=== PATIENT | female | born 1950 | race African-American/Black ===

== ENCOUNTER 2016-10-02 13:41 | Inpatient (IN) | payer OTHER, MEDICAID ==
[~2016-10-02] VITALS: Ht 157.5 cm; Wt 71.7 kg
[~2016-10-02 13:41] MED LIST: ASPIR 8181 MG ORAL; CYCLOBENZAPRINE10 MG ORAL; IBUPROFEN600 MG ORAL; MAXZIDE 37.5 M1 EAC1 PO; NORCO 5-325 TA1 EACH ORAL; NORVASC10 MG ORAL
[2016-10-02 14:07] VITALS: BP 139/59
--- NOTE | 2016-10-02 14:22 | Emergency Room Report ---
History of Present Illness General Chief Complaint: Dyspnea/Respdistress Source: Patient Present Illness HPI Patient is a 66-year-old female presented for increased difficulty breathing. Patient gradual onset of symptoms over the past 2 weeks. Patient had prior history of hypertension. Patient had recently returned from [facility] where she had further medical testing done. Patient stated that she had had negative CT of the chest. The patient describes having increased night sweats as well as weight loss. The patient had been having some symptoms for several weeks. This had somewhat worsened. She denies any prior history of tuberculosis. As she had no vomiting or diarrhea. She reports having generalized joint pain. Allergies: Coded Allergies: No Known Allergies (Unverified , 08/19/13) Patient History Past Medical History: see triage record Reviewed Nursing Documentation: PMH: Agreed, PSxH: Agreed Nursing Documentation-PMH Past Medical History: No History, Except For Hx Hypertension: Yes Hx Asthma: Yes Review of Systems All Other Systems: negative except mentioned in HPI Physical Exam Vital Signs Date Time Temp Pulse Resp B/P Pulse Ox O2 Delivery O2 Flow Rate FiO2 10/02/16 13:48 97.5 106 20 133/66 98 Room Air Sp02 EP Interpretation: reviewed, normal General Appearance: normal inspection, well appearing, no apparent distress, alert, GCS 15 Head: atraumatic ENT: normal ENT inspection, hearing grossly normal, normal voice Neck: normal inspection, full range of motion, supple, no bony tend Respiratory: normal inspection, lungs clear, normal breath sounds, no respiratory distress, no retraction, no wheezing Cardiovascular #1: regular rate, rhythm, no edema Gastrointestinal: normal inspection, normal bowel sounds, non tender, soft, no guarding, no hernia Genitourinary: no CVA tenderness Musculoskeletal: normal inspection, back normal, normal range of motion Neurologic: normal inspection, alert, oriented x3, responsive, physical education aide III-XII nml as tested, speech normal Psychiatric: normal inspection, judgement/insight normal, mood/affect normal Skin: normal inspection, normal color, no rash Medical Decision Making Diagnostic Impression: Primary Impression: Metabolic acidosis with respiratory alkalosis Additional Impression: Lactic acid acidosis ER Course Patient presented for shortness of breath.Differential included but was not limited to anemia, pneumonia, pneumothorax, myocardial infarction, pericardial effusion, congestive heart failure, acidosis. Because of complexity of patient' s case laboratory testing and imaging studies were ordered. Prior laboratory testing was reviewed was notable for elevated sedimentation rate. Laboratory testing from today was noted for elevated anion gap of low bicarbonate. Patient was noted to have relatively normal BUN creatinine. This was associated with low ABG CO2 and low pH. As consistent with a metabolic acidosis with respiratory compensation. Patient noted be mildly anemic. Patient did not show any evidence of definite infection.The patient apparently had recent laboratory testing done and [place] to rule out dengue. The patient was discussed with Dr. hook for inpatient management Labs Test 10/02/16 14:05 10/02/16 14:22 10/02/16 15:55 White Blood Count 7.0 K/UL (4.8-10.8) Red Blood Count 3.58 M/UL (4.20-5.40) Hemoglobin 9.4 G/DL (12.0-16.0) Hematocrit 29.4 % (37.0-47.0) Mean Corpuscular Volume 82 FL (80-99) Mean Corpuscular Hemoglobin 26.2 PG (27.0-31.0) Mean Corpuscular Hemoglobin Concent 31.9 G/DL (32.0-36.0) Red Cell Distribution Width 18.5 % (11.6-14.8) Platelet Count 98 K/UL (150-450) Mean Platelet Volume 7.0 FL (6.5-10.1) Neutrophils (%) (Auto) % (45.0-75.0) Lymphocytes (%) (Auto) % (20.0-45.0) Monocytes (%) (Auto) % (1.0-10.0) Eosinophils (%) (Auto) % (0.0-3.0) Basophils (%) (Auto) % (0.0-2.0) Differential Total Cells Counted 100 Neutrophils % (Manual) 12 % (45-75) Lymphocytes % (Manual) 29 % (20-45) Monocytes % (Manual) 16 % (1-10) Eosinophils % (Manual) 0 % (0-3) Basophils % (Manual) 0 % (0-2) Myelocytes % 1 % (0-0) Blast Cells % 35 % (0-0) Band Neutrophils 7 % (0-8) Platelet Estimate Decreased Platelet Morphology Normal Polychromasia 1+ Anisocytosis 1+ Erythrocyte Sedimentation Rate 115 MM/HR (0-30) Sodium Level 142 mEQ/L (135-145) Potassium Level 4.3 mEQ/L (3.4-4.9) Chloride Level 94 mEQ/L (98-107) Carbon Dioxide Level 13 mEQ/L (20-30) Anion Gap 35 (5-15) Blood Urea Nitrogen 21 mg/dL (7-23) Creatinine 1.0 mg/dL (0.5-0.9) Estimat Glomerular Filtration Rate > 60 mL/min (>60) Glucose Level 114 mg/dL (74-106) Calcium Level 10.3 mg/dL (8.6-10.2) Total Bilirubin 0.2 mg/dL (0.0-1.2) Aspartate Amino Transf (AST/SGOT) 65 U/L (5-40) Alanine Aminotransferase (ALT/SGPT) 36 U/L (3-33) Alkaline Phosphatase 261 U/L (35-104) Total Creatine Kinase 27 U/L (26-140) Creatine Kinase MB < 1.5 ng/mL (< 3.8) Creatine Kinase MB Relative Index Troponin I < 0.30 ng/mL (<=0.30) Pro-B-Type Natriuretic Peptide 1049 pg/mL (0-125) Total Protein 7.1 g/dL (6.6-8.7) Albumin 3.5 g/dL (3.5-5.2) Globulin 3.6 g/dL Albumin/Globulin Ratio 0.9 (1.0-2.7) Arterial Blood pH 7.320 (7.350-7.450) Arterial Blood Partial Pressure CO2 25.0 mmHg (35.0-45.0) Arterial Blood Partial Pressure O2 103.0 mmHg (75.0-100.0) Arterial Blood HCO3 13.0 mmol/L (22.0-26.0) Arterial Blood Oxygen Saturation 97.0 % (92.0-98.0) Arterial Blood Base Excess -12 Sae Test Positive Chest X-Ray Diagnostic Results EP Interpretation: Yes Findings: no consolidation, no effusion, no pneumothorax, no acute cardiopulmonary disease Number of Views: 1 Last Vital Signs Date Time Temp Pulse Resp B/P Pulse Ox O2 Delivery O2 Flow Rate FiO2 10/02/16 14:07 106 20 Room Air 10/02/16 14:07 97.5 139/59 99 Status: improved Disposition: HOME, SELF-CARE Condition: Stable Mark Guardado Oct 02, 2016 14:22
[2016-10-02 14:34] LABS: MEAN CORPUSCULAR HEMOGLOBIN 26.2 PG (27.0-31.0); MEAN CORPUSCULAR HGB CONC 31.9 G/DL (32.0-36.0); MEAN CORPUSCULAR VOLUME 82 FL (80-99); PLATELET COUNT 98 K/UL (150-450); RED BLOOD COUNT 3.58 M/UL (4.20-5.40); RED CELL DISTRIBUTION WIDTH 18.5 % (11.6-14.8)
[2016-10-02 14:36] LABS: ABG ALLEN TEST POSITIVE; ABG BASE EXCESS -12
[2016-10-02 14:42] LABS: TROPONIN I < 0.30 ng/mL (<=0.30)
[2016-10-02 14:43] LABS: ALANINE AMINOTRANSFERASE 36 U/L (3-33); ALBUMIN/GLOBULIN RATIO 0.9 (1.0-2.7); ANION GAP 35 (5-15); ASPARTATE AMINO TRANSFERASE 65 U/L (5-40); CALCIUM 10.3 mg/dL (8.6-10.2); CARBON DIOXIDE 13 mEQ/L (20-30); CHLORIDE 94 mEQ/L (98-107); GLOMERULAR FILTRATION RATE > 60 mL/min (>60); HEMOLYSIS 8; POTASSIUM 4.3 mEQ/L (3.4-4.9); REFLEX LACTIC ACID YES OR NO YES; SODIUM 142 mEQ/L (135-145); TOTAL PROTEIN 7.1 g/dL (6.6-8.7)
[2016-10-02 14:53] LABS: CKMB < 1.5 ng/mL (< 3.8)
[2016-10-02 16:17] LABS: ANISOCYTOSIS 1+; BAND NEUTROPHILS % (MANUAL) 7 % (0-8); BLAST% 35 % (0-0); LYMPHOCYTES % (MANUAL) 29 % (20-45); MYELOCYTES % 1 % (0-0); NEUTROPHILS % (MANUAL) 12 % (45-75); POLYCHROMASIA 1+; TOTAL CELLS COUNTED 100
[2016-10-02 16:18] VITALS: BP 129/65
[2016-10-02 16:18] LABS: BASOPHILS % (MANUAL) 0 % (0-2); EOSINOPHILS % (MANUAL) 0 % (0-3); PLATELET ESTIMATE DECREASED; PLATELET MORPHOLOGY NORMAL
[2016-10-02 16:48] VITALS: BP 132/61
[2016-10-02 16:50] LABS: HEMOLYSIS 4; IRON 167 ug/dL (37-145); TOTAL IRON BINDING CAPACITY 183 ug/dL (250-400)
[2016-10-02] MEDS: Sodium Bicarbonate 50 ML in D5 1/2NS 1,000 ML IV SCH (18:50)
[2016-10-02 20:29] VITALS: BP 124/51
[2016-10-02] MEDS ORDERED: Heparin 5000 units/ml inj SUBQ SCH (21:00)
[2016-10-03] VITALS: BP 129/50
[2016-10-03 04:00] VITALS: BP 136/57
[2016-10-03 08:00] VITALS: BP_SYST 109; BP_SYST 135; BP_DIAS 56; BP_DIAS 66
[2016-10-03] MEDS: Sodium Bicarbonate 50 ML in D5 1/2NS 1,000 ML IV SCH ×2 (08:01→21:26)
[2016-10-03 08:17] LABS: ABG ALLEN TEST POSITIVE; ABG BASE EXCESS -8.2
[2016-10-03 08:36] LABS: MEAN CORPUSCULAR HGB CONC 31.3 G/DL (32.0-36.0); MEAN CORPUSCULAR VOLUME 83 FL (80-99); MEAN PLATELET VOLUME 6.9 FL (6.5-10.1); PLATELET COUNT 85 K/UL (150-450); RED BLOOD COUNT 3.16 M/UL (4.20-5.40); RED CELL DISTRIBUTION WIDTH 18.6 % (11.6-14.8)
[2016-10-03 08:57] LABS: ANION GAP 30 (5-15); CALCIUM 9.4 mg/dL (8.6-10.2); CARBON DIOXIDE 17 mEQ/L (20-30); CHLORIDE 94 mEQ/L (98-107); CREATININE 0.8 mg/dL (0.5-0.9); GLOMERULAR FILTRATION RATE > 60 mL/min (>60); HEMOLYSIS 6; POTASSIUM 3.6 mEQ/L (3.4-4.9); SODIUM 141 mEQ/L (135-145)
[2016-10-03] MEDS ORDERED: Aspirin Baby 81mg ORAL SCH (09:00)
[2016-10-03 09:03] LABS: NEUTROPHILS % (MANUAL) 17 % (45-75); REFLEX LACTIC ACID YES OR NO YES
[2016-10-03 09:04] LABS: BAND NEUTROPHILS % (MANUAL) 0 % (0-8); BASOPHILS % (MANUAL) 0 % (0-2); BLAST% 25 % (0-0); EOSINOPHILS % (MANUAL) 2 % (0-3); LYMPHOCYTES % (MANUAL) 51 % (20-45); PLATELET ESTIMATE DECREASED
[2016-10-03 09:05] LABS: ANISOCYTOSIS 2+; PLATELET MORPHOLOGY NORMAL
[2016-10-03 09:06] LABS: HYPOCHROMASIA 3+
--- NOTE | 2016-10-03 09:24 | History and Physical ---
History of Present Illness General Date patient seen: Oct 03, 2016 Time patient seen: 08:00 Reason for Hospitalization: Dyspnea/Respdistress Present Illness HPI 66-year-old female with hx of HTN presented for increased difficulty breathing over the past 2 weeks. Patient had recently returned from [facility] where she had medical testing done. Patient stated that she had had negative CT of the chest. Patient reported night sweats as well as weight loss. reports difficulties with walking, stated that her legs not holding her. patient reported generalized joint pain Denied any prior history of tuberculosis. No chest pain, no dizziness, no palpitations, no blackouts No abdominal pain, no n/v/diarrhea Workup in ED revealed severe lactic acidosis with elevated anion gap CXR no acute cardiopulmonary disease pH 7.32, bicarb 13, anion gap 35 no leukocytosis, anemia, increased blasts cells on CBC with dif, thrombocytopenia, this am leukopenia as well troponin negative , [employer] sinus rhythm Allergies: Coded Allergies: No Known Allergies (Unverified , 08/19/13) Medication History Scheduled Amlodipine Besylate (Norvasc), 10 MG ORAL DAILY, (Reported) Aspirin* (Aspir 81*), 81 MG ORAL DAILY, (Reported) Cyclobenzaprine Hcl* (Flexeril*), 10 MG ORAL THREE TIMES A DAY Triamterene/Hydrochlorothiazid (Maxzide 37.5 Mg-25 Mg Tablet), 1 EACH PO DAILY, (Reported) Scheduled PRN Hydrocodone Bit/Acetaminophen 5-325* ([place] 5-325*), 1 TAB ORAL Q6H PRN for For Pain Ibuprofen* (Motrin*), 600 MG ORAL Q8H PRN for For Pain Patient History Healthcare decision maker Resuscitation status Full Code Advanced Directive on File Past Medical/Surgical History Past Medical/Surgical History: (1) HTN (hypertension) Review of Systems Constitutional: Reports: see HPI, weakness Eye: Reports: no symptoms ENT: Reports: no symptoms Respiratory: Reports: no symptoms, other - asthma Cardiovascular: Reports: no symptoms, other - HTN Gastrointestinal: Reports: no symptoms Genitourinary: Reports: no symptoms Musculoskeletal: Reports: joint pain - generalized Skin: Reports: no symptoms Psychiatric: Reports: no symptoms Endocrine: Reports: unexplained weight loss Hematologic/Lymphatic: Reports: anemia, no symptoms Physical Exam General Appearance: no apparent distress, alert Lines, tubes and drains: peripheral HEENT: normocephalic, atraumatic, anicteric, mucous membranes moist Neck: non-tender, supple Respiratory/Chest: chest wall non-tender, lungs clear, normal breath sounds, no accessory muscle use Cardiovascular/Chest: regular rhythm - ST with PAC , tachycardia Abdomen: normal bowel sounds, non tender, soft Extremities: normal range of motion, non-tender, no calf tenderness, normal capillary refill Skin Exam: normal pigmentation, warm/dry Neurologic: alert, oriented x 3, responsive Musculoskeletal: normal muscle bulk Last 24 Hour Vital Signs Date Time Temp Pulse Resp B/P Pulse Ox O2 Delivery O2 Flow Rate FiO2 10/03/16 08:45 113 10/03/16 08:05 109 136/57 10/03/16 04:00 109 10/03/16 04:00 97.7 60 20 136/57 100 Room Air 10/03/16 00:00 98.4 109 20 129/50 98 Room Air 10/03/16 00:00 111 10/02/16 21:00 100 10/02/16 20:29 98.4 109 20 124/51 98 Room Air 10/02/16 16:48 98.2 106 20 132/61 99 Room Air 10/02/16 16:26 103 18 136/78 99 Room Air 10/02/16 16:18 97.4 103 24 129/65 99 Room Air 10/02/16 14:07 106 20 Room Air 10/02/16 14:07 97.5 109 22 139/59 99 Room Air 10/02/16 13:48 97.5 106 20 133/66 98 Room Air Intake and Output 10/02/16 10/03/16 19:00 07:00 Intake Total 500 ml 825 ml Balance 500 ml 825 ml Intake IV Total 500 ml 825 ml # Voids 1 3 Laboratory Tests Test 10/02/16 14:05 10/02/16 14:22 10/02/16 15:55 10/03/16 08:03 White Blood Count 7.0 K/UL (4.8-10.8) Red Blood Count 3.58 M/UL (4.20-5.40) L Hemoglobin 9.4 G/DL (12.0-16.0) L Hematocrit 29.4 % (37.0-47.0) L Mean Corpuscular Volume 82 FL (80-99) Mean Corpuscular Hemoglobin 26.2 PG (27.0-31.0) L Mean Corpuscular Hemoglobin Concent 31.9 G/DL (32.0-36.0) L Red Cell Distribution Width 18.5 % (11.6-14.8) H Platelet Count 98 K/UL (150-450) L Mean Platelet Volume 7.0 FL (6.5-10.1) Neutrophils (%) (Auto) % (45.0-75.0) Lymphocytes (%) (Auto) % (20.0-45.0) Monocytes (%) (Auto) % (1.0-10.0) Eosinophils (%) (Auto) % (0.0-3.0) Basophils (%) (Auto) % (0.0-2.0) Differential Total Cells Counted 100 Neutrophils % (Manual) 12 % (45-75) L Lymphocytes % (Manual) 29 % (20-45) Monocytes % (Manual) 16 % (1-10) H Eosinophils % (Manual) 0 % (0-3) Basophils % (Manual) 0 % (0-2) Myelocytes % 1 % (0-0) H Blast Cells % 35 % (0-0) *H Band Neutrophils 7 % (0-8) Platelet Estimate Decreased L Platelet Morphology Normal Polychromasia 1+ Anisocytosis 1+ Erythrocyte Sedimentation Rate 115 MM/HR (0-30) H Sodium Level 142 mEQ/L (135-145) Potassium Level 4.3 mEQ/L (3.4-4.9) Chloride Level 94 mEQ/L (98-107) L Carbon Dioxide Level 13 mEQ/L (20-30) L Anion Gap 35 (5-15) H Blood Urea Nitrogen 21 mg/dL (7-23) Creatinine 1.0 mg/dL (0.5-0.9) H Estimat Glomerular Filtration Rate > 60 mL/min (>60) Glucose Level 114 mg/dL (74-106) H Lactic Acid Level 15.10 mmol/L (0.66-2.22) H 15.00 mmol/L (0.66-2.22) H Calcium Level 10.3 mg/dL (8.6-10.2) H Total Bilirubin 0.2 mg/dL (0.0-1.2) Aspartate Amino Transf (AST/SGOT) 65 U/L (5-40) H Alanine Aminotransferase (ALT/SGPT) 36 U/L (3-33) H Alkaline Phosphatase 261 U/L (35-104) H Total Creatine Kinase 27 U/L (26-140) Creatine Kinase MB < 1.5 ng/mL (< 3.8) Creatine Kinase MB Relative Index Troponin I < 0.30 ng/mL (<=0.30) Pro-B-Type Natriuretic Peptide 1049 pg/mL (0-125) H Total Protein 7.1 g/dL (6.6-8.7) Albumin 3.5 g/dL (3.5-5.2) Globulin 3.6 g/dL Albumin/Globulin Ratio 0.9 (1.0-2.7) L Arterial Blood pH 7.320 (7.350-7.450) 7.370 (7.350-7.450) Arterial Blood Partial Pressure CO2 25.0 mmHg (35.0-45.0) L 28.0 mmHg (35.0-45.0) L Arterial Blood Partial Pressure O2 103.0 mmHg (75.0-100.0) H 92.0 mmHg (75.0-100.0) Arterial Blood HCO3 13.0 mmol/L (22.0-26.0) L 15.0 mmol/L (22.0-26.0) L Arterial Blood Oxygen Saturation 97.0 % (92.0-98.0) 95.0 % (92.0-98.0) Arterial Blood Base Excess -12 -8.2 Sae Test Positive Positive Iron Level 167 ug/dL (37-145) H Total Iron Binding Capacity 183 ug/dL (250-400) L Percent Iron Saturation 91 % (15-50) H Unsaturated Iron Binding < 16 ug/dL (112-346) L Salicylates Level 1 mg/dL (10-30) L Test 10/03/16 08:20 White Blood Count 3.0 K/UL (4.8-10.8) #L Red Blood Count 3.16 M/UL (4.20-5.40) L Hemoglobin 8.2 G/DL (12.0-16.0) L Hematocrit 26.3 % (37.0-47.0) L Mean Corpuscular Volume 83 FL (80-99) Mean Corpuscular Hemoglobin 26.0 PG (27.0-31.0) L Mean Corpuscular Hemoglobin Concent 31.3 G/DL (32.0-36.0) L Red Cell Distribution Width 18.6 % (11.6-14.8) H Platelet Count 85 K/UL (150-450) L Mean Platelet Volume 6.9 FL (6.5-10.1) Neutrophils (%) (Auto) % (45.0-75.0) Lymphocytes (%) (Auto) % (20.0-45.0) Monocytes (%) (Auto) % (1.0-10.0) Eosinophils (%) (Auto) % (0.0-3.0) Basophils (%) (Auto) % (0.0-2.0) Neutrophils % (Manual) 17 % (45-75) L Lymphocytes % (Manual) 51 % (20-45) H Monocytes % (Manual) 5 % (1-10) Eosinophils % (Manual) 2 % (0-3) Basophils % (Manual) 0 % (0-2) Blast Cells % 25 % (0-0) *H Band Neutrophils 0 % (0-8) Platelet Estimate Decreased L Platelet Morphology Normal Hypochromasia 3+ Anisocytosis 2+ Sodium Level 141 mEQ/L (135-145) Potassium Level 3.6 mEQ/L (3.4-4.9) Chloride Level 94 mEQ/L (98-107) L Carbon Dioxide Level 17 mEQ/L (20-30) L Anion Gap 30 (5-15) H Blood Urea Nitrogen 14 mg/dL (7-23) Creatinine 0.8 mg/dL (0.5-0.9) Estimat Glomerular Filtration Rate > 60 mL/min (>60) Glucose Level 113 mg/dL (74-106) H Lactic Acid Level 12.50 mmol/L (0.66-2.22) H Calcium Level 9.4 mg/dL (8.6-10.2) Height (Feet): 5 Height (Inches): 2.00 Weight (Pounds): 158 Medications Current Medications Medications (Trade) Dose Ordered Sig/Ebony Route PRN Reason Start Time Stop Time Status Last Admin Dose Admin Acetaminophen (Tylenol) 650 mg Q4H PRN ORAL Mild Pain/Temp > 100.5 10/02/16 18:00 11/01/16 17:59 Amlodipine Besylate (Norvasc) 10 mg DAILY ORAL 10/03/16 09:00 11/02/16 08:59 10/03/16 08:05 Sodium Bicarbonate/ Dextrose/Sodium Chloride (Sodium Bicarbonate/D5 0.45% NS) 1,050 ml @ 75 mls/hr Q14H IV 10/02/16 19:00 11/01/16 18:59 10/03/16 08:01 Temazepam (Restoril) 15 mg HSPRN PRN ORAL Insomnia 10/02/16 21:00 10/09/16 20:59 Assessment/Plan Assessment/Plan ASSESSMENT severe metabolic acidosis with elevated anion gap pancytopenia increased blasts on deferential generalized weakness weight loss elevated ESR PLAN OF CARE DOMINIC IVF with bicarb nephro eval off diuretic and ASA fup with ABG, pH ok HH with trend down, iron panel stable, elevated ESR, blast on CBC with dif get peripheral blood smear review heme eval ? bone marrow aspiration with biopsy monitor HH transfuse prn, goal to keep HgB above 7 anemia workup, stool OB BP management with CCB stable O2 prn to keep sat above 92%, HHN prn PT/OT Venous Duplex BLE case discussed and evaluated by supervising physician Jorge Luis (Araceli),Nancie LEUNG Oct 03, 2016 09:24
[2016-10-03] MEDS ORDERED: DuoNeb 0.5-3(2.5)mg/3ml neb HHN PRN (09:30)
--- NOTE | 2016-10-03 09:47 | Diagnostic Imaging Report ---
Indication: SOB Technique: XRAY CHEST 1 V Comparison: 01/06/15. Findings: The cardiomediastinal silhouette is normal. The lungs are clear. There is no evidence of pleural fluid. The bones are unremarkable. Impression: Normal chest.
[2016-10-03 12:00] VITALS: BP 127/55
--- NOTE | 2016-10-03 12:21 | General Progress Note ---
Progress Note Progress Note [id number] full note dictated CHEY CAGLE Oct 03, 2016 12:21
[2016-10-03 15:30] LABS: PATH BLOOD SMEAR/OMC SENT TO PATHOLOGIST
[2016-10-03 16:14] VITALS: BP 140/62
[2016-10-03 16:14] LABS: URIC ACID 15.4 mg/dL (3.0-7.5)
[2016-10-03 20:53] VITALS: BP 136/67
[2016-10-04] VITALS: BP 135/57
--- NOTE | 2016-10-04 00:17 | Consultation ---
DATE OF CONSULTATION: 10/03/2016 NEPHROLOGY CONSULTATION CONSULTING PHYSICIAN: Keely Mendez M.D. REFERRING PHYSICIAN: Malu Day M.D. REASON FOR CONSULTATION: Acidosis and electrolyte abnormality. HISTORY OF PRESENT ILLNESS: The patient is a 66-year-old very pleasant female with past medical history significant for history of hypertension, CAD, and hypertension, who basically presents to the emergency room complaining of fever, chills, night sweats, and weight loss. Apparently about two months ago, she started having some flu-like symptoms and at about the same time, she flew back home to [facility] and over there, she continued to have fever, night sweat, and decreased appetite. She visited a doctor. She sought medical attention. There, she was given some intravenous antibiotic. She did not take any oral antibiotic. She basically continued to be feeling severely weak. She came to emergency room. She found to have metabolic acidosis. The ABG confirmed bicarbonate of 13 and she was found to have an anion gap of 35. She was consequently admitted. Note that the patient has been drinking above medication, which she is not aware of the formula of it for the last couple of weeks for the treatment of her severe weakness and flu-like symptom. PAST MEDICAL HISTORY: Including hypertension. MEDICATIONS: Home medications are includin. Norvasc 10 mg. 2. Aspirin. 3. Cyclobenzaprine or Flexeril 10 mg by mouth daily. 4. Maxzide 37.5/25 mg by mouth daily. 5. Ibuprofen as needed. FAMILY HISTORY: Father long time ago from liver CA due to alcohol drinking and no other history of chronic diseases. No recent exposure to anybody with chronic disease. The recent visit [facility] to visit family. REVIEW OF SYSTEMS: General: She complained of generalized weakness. Complained of fever, chills, and night sweats. She lost about 28 pounds. Pulmonary: She complained of cough. No phlegm. No hemoptysis. Cardiovascular: Denies any chest pain. Gastrointestinal: Complained of decreased appetite. No nausea. No vomiting. No melena. No hematemesis. Last colonoscopy was five years ago. Genitourinary: Denies any dysuria or frequency. About a year ago, she had a Pap smear. Musculoskeletal: She denies any weakness or numbness. PHYSICAL EXAMINATION: VITAL SIGNS: The patient had a temperature of 97, pulse rate of 113, respiratory rate of 20, and blood pressure 135/57. HEAD AND NECK: No JVP. No LAD. No thyromegaly. Extraocular movements intact. Pupils are reactive to light and accommodation. LUNGS: Clear to auscultation. CARDIAC: Regular rate and rhythm. S1, S2. No murmur. No rub. ABDOMEN: Soft, nontender, and nondistended. EXTREMITIES: Trace edema. No clubbing. No cyanosis. LABORATORY AND DIAGNOSTIC DATA: Laboratory values, the patient has a WBC count of 3, hemoglobin of 8.5, hematocrit of 26, and platelet count of 85,000. The patient had neutrophils of 17, lymphocytes of 51, and blasts of 35%. KSR is 115. Chemistry revealed sodium 141, potassium 3.66, 94 chloride, bicarbonate of 17, BUN of 14, creatinine of 0.8, and glucose of 113. Lactic acid of 14. Iron is less than 16. There is no UA. ASSESSMENT: 1. Severe lymphocytic anemia. 2. Lactic acidosis. 3. Pancytopenia. 4. Hypertension. 5. Severe anemia. PLAN: Plan for the patient to obtain ABG and continue intravenous hydration and check the uric acid, rule out tumor lysis syndrome. Check the LDH. Consider Hematology/Oncology consultation. I would monitor electrolytes closely.. I would like to thank, Dr. Day, for allowing me to participate in the care of this patient. Keely Mendez M.D. DR: RHINA JOB#: [id number] CC:
--- NOTE | 2016-10-04 01:48 | Consultation ---
DATE OF CONSULTATION: 10/03/2016 HEMATOLOGY/ONCOLOGY CONSULTATION CONSULTING PHYSICIAN: Reji Mae M.D. REQUESTING PHYSICIAN: Malu Day M.D. and Nancie RubioCreedmoor Psychiatric CenterTanja Joshi REASON FOR CONSULTATION: Evaluation of blasts on peripheral smear, anemia, thrombocytopenia, . IDENTIFICATION: Dear Dr. Malu Day, The patient is a pleasant 66-year-old female with a past medical history, which is significant for hypertension, at this time presents to [facility] with increased difficulty of breathing for the past several weeks. She had a CAT scan of the chest, which was completed at an outside hospital per the patient, which was negative. The patient as well as recent weight loss, difficulty with walking, , generalized weakness and joint pain noted. No previous past medical history again reported. She does not have a history of leukemia, however, was noted to have thrombocytopenia and leukopenia on admission. The patient was noted to have 25% blasts on the peripheral smear, thrombocytopenia, as well as leukopenia. Hematology service was consulted for further evaluation and treatment. PAST MEDICAL HISTORY: Hypertension. PAST SURGICAL HISTORY: None noted. ALLERGIES: No known drug allergies. MEDICATIONS: Amlodipine, aspirin, , and Maxzide. FAMILY HISTORY: Noncontributory. REVIEW OF SYSTEMS: Constitutional: noted. Skin: No rashes, lumps, or itching. HEENT: No headache, hearing or vision changes. No swollen glands. Breasts: No lumps, pain, or discharge. Pulmonary: No cough, sputum, or shortness of breath. Cardiovascular: No chest pain, tightness, or palpitations. Gastrointestinal: No nausea, vomiting, or diarrhea. Genitourinary: No dysuria, frequency, or urgency. Musculoskeletal: No joint swelling or muscle pain. Neurological: No dizziness, fainting, or seizures. Psychiatric: . PHYSICAL EXAMINATION: GENERAL: The patient is in no distress. VITAL SIGNS: Blood pressure 136/87, heart rate 68, respiratory rate 12, temperature is 97.7 degrees Fahrenheit, and O2 saturation 100% on room air. PULMONARY: Decreased breath sounds. CARDIOVASCULAR: Regular rate. No S3 or S4. GASTROINTESTINAL: Abdomen is soft, nontender, and nondistended. EXTREMITIES: Has 1+ edema. LABORATORY AND DIAGNOSTIC DATA: WBC is 7, hemoglobin 9.4, hematocrit 29, and platelets 89,000. Blasts 25% to 35%. ASSESSMENT: 1. Blasts noted on the peripheral smear concerning for leukemia. We will need to obtain a bone marrow biopsy. At this time, we will need further evaluation to find the underlying cause of the patient's pancytopenia. 2. Leukopenia. bone marrow biopsy. 3. Thrombocytopenia, potentially secondary to bone marrow biopsy. workup as well. 4. Hypertension, closely being monitored. 5. . 6. Lactic acidosis. 7. Hyper . 8. Monocytosis. RECOMMENDATIONS: 1. Obtain bone marrow biopsy. 2. has been ordered. 3. DIC panel sent. 4. HIV and hepatitis panel ordered. 5. . 6. DVT prophylaxis with heparin. 7. Uric acid to be obtained. 8. Monitor lactic acidosis. 9. Concerning for leukemia, we will need to obtain a bone marrow biopsy. 10. bone marrow biopsy to be completed on Tuesday. 11. Discussed with staff. Thank you, Nancie Kang and Dr. Malu Day, for this kind referral. Please do not hesitate to contact me if you have any further questions. Reji Mae M.D. DR: TATY JOB#: [id number] CC:
[2016-10-04 04:00] VITALS: BP 130/49
[2016-10-04 05:12] LABS: MEAN CORPUSCULAR HGB CONC 32.5 G/DL (32.0-36.0); MEAN CORPUSCULAR VOLUME 83 FL (80-99); MEAN PLATELET VOLUME 6.9 FL (6.5-10.1); PLATELET COUNT 74 K/UL (150-450); RED BLOOD COUNT 2.89 M/UL (4.20-5.40); RED CELL DISTRIBUTION WIDTH 18.6 % (11.6-14.8); WHITE BLOOD COUNT 5.8 K/UL (4.8-10.8)
[2016-10-04 05:23] LABS: ANION GAP 30 (5-15); CALCIUM 8.8 mg/dL (8.6-10.2); CARBON DIOXIDE 15 mEQ/L (20-30); CHLORIDE 98 mEQ/L (98-107); CREATININE 0.8 mg/dL (0.5-0.9); GLOMERULAR FILTRATION RATE > 60 mL/min (>60); HEMOLYSIS 0; SODIUM 143 mEQ/L (135-145)
[2016-10-04 08:00] VITALS: BP 125/44
[2016-10-04 10:11] LABS: ANISOCYTOSIS 1+; BAND NEUTROPHILS % (MANUAL) 0 % (0-8); BASOPHILS % (MANUAL) 3 % (0-2); BLAST% 11 % (0-0); EOSINOPHILS % (MANUAL) 1 % (0-3); HYPOCHROMASIA 1+; LYMPHOCYTES % (MANUAL) 63 % (20-45); NEUTROPHILS % (MANUAL) 16 % (45-75); PLATELET ESTIMATE DECREASED; PLATELET MORPHOLOGY NORMAL; POLYCHROMASIA OCCASIONAL; TOTAL CELLS COUNTED 100
[2016-10-04 10:13] LABS: ABG ALLEN TEST POSITIVE; ABG BASE EXCESS -9.7
--- NOTE | 2016-10-04 11:57 | Pulmonology Progress Note ---
Assessment/Plan Problems: (1) Pancytopenia (2) Lactic acid acidosis (3) Metabolic acidosis with respiratory alkalosis (4) HTN (hypertension) Assessment/Plan prbc prn bone marrow biopsy Subjective ROS Limited/Unobtainable: No Constitutional: Reports: no symptoms HEENT: Repors: no symptoms Respiratory: Reports: no symptoms Allergies: Coded Allergies: No Known Allergies (Unverified , 08/19/13) Objective Last 24 Hour Vital Signs Date Time Temp Pulse Resp B/P Pulse Ox O2 Delivery O2 Flow Rate FiO2 10/04/16 08:40 103 125/44 10/04/16 08:00 98.0 103 20 125/44 96 Room Air 10/04/16 08:00 99 10/04/16 04:00 113 10/04/16 04:00 97.9 62 20 130/49 95 Room Air 10/04/16 00:00 98.8 64 24 135/57 95 Room Air 10/04/16 00:00 113 10/03/16 20:53 100.0 60 24 136/67 97 Room Air 10/03/16 20:09 21 10/03/16 20:09 89 22 97 Room Air 21 10/03/16 20:00 115 10/03/16 16:31 110 10/03/16 16:14 98.2 100 21 140/62 97 Room Air 10/03/16 12:00 104 10/03/16 12:00 97.9 65 22 127/55 97 Room Air Intake and Output 10/03/16 10/04/16 19:00 07:00 Intake Total 832 ml 865 ml Output Total 400 ml Balance 432 ml 865 ml Intake IV Total 832 ml 865 ml Output Urine Total 400 ml # Voids 1 2 General Appearance: WD/WN HEENT: normocephalic, atraumatic Respiratory/Chest: chest wall non-tender, lungs clear Cardiovascular: normal peripheral pulses, normal rate Abdomen: normal bowel sounds, no organomegaly Genitourinary: normal external genitalia Extremities: no cyanosis 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 Lymphatic: no neck adenopathy Microbiology Date/Time Source Procedure Growth Status 10/02/16 15:55 Blood Blood Culture - Preliminary NO GROWTH AFTER 24 HOURS Resulted 10/02/16 15:40 Blood Blood Culture - Preliminary NO GROWTH AFTER 24 HOURS Resulted Laboratory Tests 10/04/16 03:15: White Blood Count 5.8#, Red Blood Count 2.89L, Hemoglobin 7.8L, Hematocrit 24.0L , Mean Corpuscular Volume 83, Mean Corpuscular Hemoglobin 27.0, Mean Corpuscular Hemoglobin Concent 32.5, Red Cell Distribution Width 18.6H, Platelet Count 74L, Mean Platelet Volume 6.9, Neutrophils (%) (Auto) , Lymphocytes (%) (Auto) , Monocytes (%) (Auto) , Eosinophils (%) (Auto) , Basophils (%) (Auto) , Differential Total Cells Counted 100, Neutrophils % ( Manual) 16L, Lymphocytes % (Manual) 63H, Monocytes % (Manual) 6, Eosinophils % ( Manual) 1, Basophils % (Manual) 3H, Blast Cells % 11*H, Band Neutrophils 0, Platelet Estimate DecreasedL, Platelet Morphology Normal, Polychromasia Occasional, Hypochromasia 1+, Anisocytosis 1+, Sodium Level 143, Potassium Level 4.0, Chloride Level 98, Carbon Dioxide Level 15L, Anion Gap 30H, Blood Urea Nitrogen 13, Creatinine 0.8, Estimat Glomerular Filtration Rate > 60, Glucose Level 88, Calcium Level 8.8 10/04/16 10:09: Arterial Blood pH 7.372, Arterial Blood Partial Pressure CO2 25.0L, Arterial Blood Partial Pressure O2 82.1, Arterial Blood HCO3 14.2L, Arterial Blood Oxygen Saturation 93.7, Arterial Blood Base Excess -9.7, Sae Test Positive Current Medications Medications (Trade) Dose Ordered Sig/Ebony Route PRN Reason Start Time Stop Time Status Last Admin Dose Admin Acetaminophen (Tylenol) 650 mg Q4H PRN ORAL Mild Pain/Temp > 100.5 10/02/16 18:00 11/01/16 17:59 Albuterol/ Ipratropium (DuoNeb 0.5-3(2.5)mg/3ml) 3 ml Q4H PRN HHN Shortness of Breath 10/03/16 09:30 10/08/16 09:29 10/03/16 20:09 Amlodipine Besylate (Norvasc) 10 mg DAILY ORAL 10/03/16 09:00 11/02/16 08:59 10/04/16 08:40 Sodium Bicarbonate/ Dextrose/Sodium Chloride (Sodium Bicarbonate/D5 0.45% NS) 1,050 ml @ 75 mls/hr Q14H IV 10/02/16 19:00 11/01/16 18:59 10/03/16 21:26 Temazepam (Restoril) 15 mg HSPRN PRN ORAL Insomnia 10/02/16 21:00 10/09/16 20:59 LEMUEL CROW Oct 04, 2016 11:57
[2016-10-04 12:00] VITALS: BP 135/52
[2016-10-04] MEDS: Sodium Bicarbonate 50 ML in D5 1/2NS 1,000 ML IV SCH ×3 (13:00→20:00)
[2016-10-04 15:25] VITALS: BP 154/78
--- NOTE | 2016-10-04 16:58 | Nephrology Progress Note ---
Assessment/Plan Assessment 1. acute lymphocytic leukemia 2. Lactic acidosis. 3. Pancytopenia. 4. Hypertension. 5. tumor lysis syndrome Plan plan iv hydration bone marrow start rasburicase if ok with hem/onc Subjective Constitutional: Reports: chills, fever, malaise, weakness HEENT: Reports: no symptoms Genitourinary: Reports: no symptoms Neurologic/Psychiatric: Reports: no symptoms Subjective NAD Objective Objective Last 24 Hour Vital Signs Date Time Temp Pulse Resp B/P Pulse Ox O2 Delivery O2 Flow Rate FiO2 10/04/16 16:00 109 10/04/16 15:25 99.1 109 20 154/78 96 Room Air 10/04/16 12:00 103 10/04/16 12:00 97.3 103 21 135/52 97 Room Air 10/04/16 08:40 103 125/44 10/04/16 08:00 98.0 103 20 125/44 96 Room Air 10/04/16 08:00 99 10/04/16 04:00 113 10/04/16 04:00 97.9 62 20 130/49 95 Room Air 10/04/16 00:00 98.8 64 24 135/57 95 Room Air 10/04/16 00:00 113 10/03/16 20:53 100.0 60 24 136/67 97 Room Air 10/03/16 20:09 21 10/03/16 20:09 89 22 97 Room Air 21 10/03/16 20:00 115 Intake and Output 10/03/16 10/04/16 19:00 07:00 Intake Total 832 ml 865 ml Output Total 400 ml Balance 432 ml 865 ml IV Total 832 ml 865 ml Output Urine Total 400 ml # Voids 1 2 Laboratory Tests 10/04/16 03:15: White Blood Count 5.8#, Red Blood Count 2.89L, Hemoglobin 7.8L, Hematocrit 24.0L , Mean Corpuscular Volume 83, Mean Corpuscular Hemoglobin 27.0, Mean Corpuscular Hemoglobin Concent 32.5, Red Cell Distribution Width 18.6H, Platelet Count 74L, Mean Platelet Volume 6.9, Neutrophils (%) (Auto) , Lymphocytes (%) (Auto) , Monocytes (%) (Auto) , Eosinophils (%) (Auto) , Basophils (%) (Auto) , Differential Total Cells Counted 100, Neutrophils % ( Manual) 16L, Lymphocytes % (Manual) 63H, Monocytes % (Manual) 6, Eosinophils % ( Manual) 1, Basophils % (Manual) 3H, Blast Cells % 11*H, Band Neutrophils 0, Platelet Estimate DecreasedL, Platelet Morphology Normal, Polychromasia Occasional, Hypochromasia 1+, Anisocytosis 1+, Sodium Level 143, Potassium Level 4.0, Chloride Level 98, Carbon Dioxide Level 15L, Anion Gap 30H, Blood Urea Nitrogen 13, Creatinine 0.8, Estimat Glomerular Filtration Rate > 60, Glucose Level 88, Calcium Level 8.8 10/04/16 10:09: Arterial Blood pH 7.372, Arterial Blood Partial Pressure CO2 25.0L, Arterial Blood Partial Pressure O2 82.1, Arterial Blood HCO3 14.2L, Arterial Blood Oxygen Saturation 93.7, Arterial Blood Base Excess -9.7, Sae Test Positive Height (Feet): 5 Height (Inches): 2.00 Weight (Pounds): 158 Objective HEAD AND NECK: No JVP. No LAD. No thyromegaly. Extraocular movements intact. Pupils are reactive to light and accommodation. LUNGS: Clear to auscultation. CARDIAC: Regular rate and rhythm. S1, S2. No murmur. No rub. ABDOMEN: Soft, nontender, and nondistended. EXTREMITIES: Trace edema. No clubbing. No cyanosis. CHEY CAGLE Oct 04, 2016 16:58
--- NOTE | 2016-10-04 17:41 | General Progress Note ---
Assessment/Plan Assessment/Plan ASSESSMENT: 1. Blasts noted on the peripheral smear concerning for leukemia. Discuss with pathology on flow, pt has ALL. Uric acid >15, will order rasburicase. Pending bone marrow biopsy. 2. Leukopenia. Likely related to ALL. 3. Thrombocytopenia, related to blasts infiltrating bone marrow 4. Tumor lysis syndrome. Uric acid >15. Have ordered rasburicase. 5. Lactic acidosis. 6. Hyperuricemia. 7.. Monocytosis. RECOMMENDATIONS: 1. Obtain bone marrow biopsy, agree to transfer to higher level of care. 2. Rasburicase has been ordered. 3. DIC panel appears negative 4. HIV and hepatitis panel negative. 5. Discuss with pathologist. 6. DVT prophylaxis with heparin. 7. Monitor uric acid. 8. Monitor lactic acidosis. 9. Discussed with staff Subjective Constitutional: Reports: no symptoms HEENT: Reports: no symptoms Cardiovascular: Reports: no symptoms Respiratory: Reports: no symptoms Gastrointestinal/Abdominal: Reports: no symptoms Genitourinary: Reports: no symptoms Neurologic/Psychiatric: Reports: no symptoms Endocrine: Reports: no symptoms Hematologic/Lymphatic: Reports: anemia Allergies: Coded Allergies: No Known Allergies (Unverified , 08/19/13) Subjective pt in no distress, not bleeding Objective Last 24 Hour Vital Signs Date Time Temp Pulse Resp B/P Pulse Ox O2 Delivery O2 Flow Rate FiO2 10/04/16 16:00 109 10/04/16 15:25 99.1 109 20 154/78 96 Room Air 10/04/16 12:00 103 10/04/16 12:00 97.3 103 21 135/52 97 Room Air 10/04/16 08:40 103 125/44 10/04/16 08:00 98.0 103 20 125/44 96 Room Air 10/04/16 08:00 99 10/04/16 04:00 113 10/04/16 04:00 97.9 62 20 130/49 95 Room Air 10/04/16 00:00 98.8 64 24 135/57 95 Room Air 10/04/16 00:00 113 10/03/16 20:53 100.0 60 24 136/67 97 Room Air 10/03/16 20:09 21 10/03/16 20:09 89 22 97 Room Air 21 10/03/16 20:00 115 Intake and Output 10/03/16 10/04/16 19:00 07:00 Intake Total 832 ml 865 ml Output Total 400 ml Balance 432 ml 865 ml IV Total 832 ml 865 ml Output Urine Total 400 ml # Voids 1 2 Laboratory Tests 10/04/16 03:15: White Blood Count 5.8#, Red Blood Count 2.89L, Hemoglobin 7.8L, Hematocrit 24.0L , Mean Corpuscular Volume 83, Mean Corpuscular Hemoglobin 27.0, Mean Corpuscular Hemoglobin Concent 32.5, Red Cell Distribution Width 18.6H, Platelet Count 74L, Mean Platelet Volume 6.9, Neutrophils (%) (Auto) , Lymphocytes (%) (Auto) , Monocytes (%) (Auto) , Eosinophils (%) (Auto) , Basophils (%) (Auto) , Differential Total Cells Counted 100, Neutrophils % ( Manual) 16L, Lymphocytes % (Manual) 63H, Monocytes % (Manual) 6, Eosinophils % ( Manual) 1, Basophils % (Manual) 3H, Blast Cells % 11*H, Band Neutrophils 0, Platelet Estimate DecreasedL, Platelet Morphology Normal, Polychromasia Occasional, Hypochromasia 1+, Anisocytosis 1+, Sodium Level 143, Potassium Level 4.0, Chloride Level 98, Carbon Dioxide Level 15L, Anion Gap 30H, Blood Urea Nitrogen 13, Creatinine 0.8, Estimat Glomerular Filtration Rate > 60, Glucose Level 88, Calcium Level 8.8 10/04/16 10:09: Arterial Blood pH 7.372, Arterial Blood Partial Pressure CO2 25.0L, Arterial Blood Partial Pressure O2 82.1, Arterial Blood HCO3 14.2L, Arterial Blood Oxygen Saturation 93.7, Arterial Blood Base Excess -9.7, Sae Test Positive Height (Feet): 5 Height (Inches): 2.00 Weight (Pounds): 158 General Appearance: WD/WN EENT: normal ENT inspection Neck: non-tender Cardiovascular: normal peripheral pulses Respiratory/Chest: chest wall non-tender Abdomen: normal bowel sounds Extremities: normal range of motion Edema: 1+ Leg (L), 1+ Leg (R), 1+ Pedal (L), 1+ Pedal (R) Neurologic: floorperson II-XII grossly normal Skin: warm/dry Reji Mae Oct 04, 2016 17:41
[2016-10-04] MEDS ORDERED: Sodium Bicarbonate 50 ML in D5 1/2NS 1,000 ML IV SCH (18:30)
[2016-10-04 19:45] VITALS: BP 124/61
[2016-10-04] MEDS: DuoNeb 0.5-3(2.5)mg/3ml neb HHN PRN (23:50)
[2016-10-05 00:12] VITALS: BP 131/88
[2016-10-05] MEDS ORDERED: Sodium Bicarbonate 8.4% 50ml Inj ONE (02:51)
[2016-10-05] MEDS: Sodium Bicarbonate 50 ML in D5 1/2NS 1,000 ML IV SCH ×5 (03:10→21:58)
[2016-10-05 04:26] VITALS: BP 125/80
[2016-10-05 07:01] LABS: MEAN CORPUSCULAR HGB CONC 32.4 G/DL (32.0-36.0); MEAN CORPUSCULAR VOLUME 83 FL (80-99); MEAN PLATELET VOLUME 7.3 FL (6.5-10.1); PLATELET COUNT 76 K/UL (150-450); RED BLOOD COUNT 3.21 M/UL (4.20-5.40); RED CELL DISTRIBUTION WIDTH 18.1 % (11.6-14.8); WHITE BLOOD COUNT 5.3 K/UL (4.8-10.8)
--- NOTE | 2016-10-05 07:55 | Nephrology Progress Note ---
Assessment/Plan Assessment 1. acute lymphocytic leukemia 2. Lactic acidosis. 3. Pancytopenia. 4. Hypertension. 5. tumor lysis syndrome Plan plan bone marrow today iv hydration bone marrow start rasburicase if ok with hem/onc Subjective Constitutional: Reports: malaise HEENT: Reports: no symptoms Genitourinary: Reports: no symptoms Neurologic/Psychiatric: Reports: no symptoms Subjective going to have marrow Objective Objective Last 24 Hour Vital Signs Date Time Temp Pulse Resp B/P Pulse Ox O2 Delivery O2 Flow Rate FiO2 10/05/16 04:26 98.1 75 18 125/80 96 Room Air 10/05/16 00:12 97.9 71 18 131/88 96 Room Air 10/04/16 23:51 21 10/04/16 23:51 59 18 99 Room Air 10/04/16 23:50 62 18 94 Room Air 21 10/04/16 19:45 99.5 60 23 124/61 95 Room Air 10/04/16 19:40 59 16 Room Air 10/04/16 16:00 109 10/04/16 15:25 99.1 109 20 154/78 96 Room Air 10/04/16 12:00 103 10/04/16 12:00 97.3 103 21 135/52 97 Room Air 10/04/16 08:40 103 125/44 10/04/16 08:00 98.0 103 20 125/44 96 Room Air 10/04/16 08:00 99 Intake and Output 10/04/16 10/05/16 19:00 07:00 Intake Total 810 ml 1350 ml Balance 810 ml 1350 ml Intake Oral 360 ml IV Total 450 ml 1350 ml # Voids 2 2 Laboratory Tests 10/04/16 10:09: Arterial Blood pH 7.372, Arterial Blood Partial Pressure CO2 25.0L, Arterial Blood Partial Pressure O2 82.1, Arterial Blood HCO3 14.2L, Arterial Blood Oxygen Saturation 93.7, Arterial Blood Base Excess -9.7, Sae Test Positive 10/05/16 05:15: White Blood Count 5.3, Red Blood Count 3.21L, Hemoglobin 8.7L, Hematocrit 26.7L , Mean Corpuscular Volume 83, Mean Corpuscular Hemoglobin 27.0, Mean Corpuscular Hemoglobin Concent 32.4, Red Cell Distribution Width 18.1H, Platelet Count 76L, Mean Platelet Volume 7.3, Neutrophils (%) (Auto) , Lymphocytes (%) (Auto) , Monocytes (%) (Auto) , Eosinophils (%) (Auto) , Basophils (%) (Auto) , Neutrophils % (Manual) [Pending], Lymphocytes % (Manual) [Pending], Platelet Estimate [Pending], Platelet Morphology [Pending] Height (Feet): 5 Height (Inches): 2.00 Weight (Pounds): 158 Objective HEAD AND NECK: No JVP. No LAD. No thyromegaly. Extraocular movements intact. Pupils are reactive to light and accommodation. LUNGS: Clear to auscultation. CARDIAC: Regular rate and rhythm. S1, S2. No murmur. No rub. ABDOMEN: Soft, nontender, and nondistended. EXTREMITIES: Trace edema. No clubbing. No cyanosis. CHEY CAGLE Oct 05, 2016 07:55
[2016-10-05 08:00] VITALS: BP 143/65
[2016-10-05 10:57] LABS: ANISOCYTOSIS 1+; BAND NEUTROPHILS % (MANUAL) 0 % (0-8); BASOPHILS % (MANUAL) 0 % (0-2); BLAST% 11 % (0-0); EOSINOPHILS % (MANUAL) 1 % (0-3); HYPOCHROMASIA 1+; LYMPHOCYTES % (MANUAL) 77 % (20-45); NEUTROPHILS % (MANUAL) 10 % (45-75); PLATELET ESTIMATE DECREASED; PLATELET MORPHOLOGY NORMAL; POLYCHROMASIA 1+; TOTAL CELLS COUNTED 100
[2016-10-05] MEDS: DuoNeb 0.5-3(2.5)mg/3ml neb HHN PRN ×2 (11:21→20:56)
[2016-10-05 12:00] VITALS: BP 92/61
--- NOTE | 2016-10-05 14:57 | General Progress Note ---
Assessment/Plan Assessment/Plan ASSESSMENT: 1. ALL. Uric acid >15, will continue allopurinol, have discussed with pulm, pending potential transfer 2. Leukopenia. Likely related to ALL. 3. Thrombocytopenia, related to blasts infiltrating bone marrow 4. Tumor lysis syndrome. Uric acid >15. Have ordered rasburicase. 5. Lactic acidosis. 6. Hyperuricemia. 7.. Monocytosis. RECOMMENDATIONS: 1. Obtain bone marrow biopsy, agree with others to transfer to higher level of care 2. Continue allopurinol 3. DIC panel appears negative 4. HIV and hepatitis panel negative. 5. Discuss with pathologist. 6. DVT prophylaxis with heparin sq 7. Monitor uric acid. 8. Monitor lactic acidosis. 9. Discussed with staff Subjective Constitutional: Reports: no symptoms HEENT: Reports: no symptoms Cardiovascular: Reports: no symptoms Respiratory: Reports: no symptoms Gastrointestinal/Abdominal: Reports: no symptoms Genitourinary: Reports: no symptoms Neurologic/Psychiatric: Reports: no symptoms Endocrine: Reports: no symptoms Hematologic/Lymphatic: Reports: anemia Allergies: Coded Allergies: No Known Allergies (Unverified , 08/19/13) Subjective pt in no distress, not bleeding, pending a bone marrow biopsy Objective Last 24 Hour Vital Signs Date Time Temp Pulse Resp B/P Pulse Ox O2 Delivery O2 Flow Rate FiO2 10/05/16 12:00 98.2 113 18 92/61 96 Nasal Cannula 2.0 10/05/16 11:31 98 20 99 Room Air 10/05/16 11:21 21 10/05/16 11:21 21 10/05/16 11:21 95 20 95 Room Air 21 10/05/16 11:21 95 20 95 Room Air 21 10/05/16 08:21 104 143/65 10/05/16 08:00 97.0 104 22 143/65 93 Room Air 10/05/16 07:22 118 22 Room Air 10/05/16 04:26 98.1 75 18 125/80 96 Room Air 10/05/16 00:12 97.9 71 18 131/88 96 Room Air 10/04/16 23:51 21 10/04/16 23:51 59 18 99 Room Air 10/04/16 23:50 62 18 94 Room Air 10/04/16 19:45 99.5 60 23 124/61 95 Room Air 4/17/17 19:40 59 16 Room Air 10/04/16 16:00 109 10/04/16 15:25 99.1 109 20 154/78 96 Room Air Intake and Output 10/04/16 10/05/16 19:00 07:00 Intake Total 810 ml 1500 ml Balance 810 ml 1500 ml Intake Oral 360 ml IV Total 450 ml 1500 ml # Voids 2 2 Laboratory Tests 10/05/16 05:15: White Blood Count 5.3, Red Blood Count 3.21L, Hemoglobin 8.7L, Hematocrit 26.7L , Mean Corpuscular Volume 83, Mean Corpuscular Hemoglobin 27.0, Mean Corpuscular Hemoglobin Concent 32.4, Red Cell Distribution Width 18.1H, Platelet Count 76L, Mean Platelet Volume 7.3, Neutrophils (%) (Auto) , Lymphocytes (%) (Auto) , Monocytes (%) (Auto) , Eosinophils (%) (Auto) , Basophils (%) (Auto) , Differential Total Cells Counted 100, Neutrophils % ( Manual) 10L, Lymphocytes % (Manual) 77H, Monocytes % (Manual) 1, Eosinophils % ( Manual) 1, Basophils % (Manual) 0, Blast Cells % 11*H, Band Neutrophils 0, Platelet Estimate DecreasedL, Platelet Morphology Normal, Polychromasia 1+, Hypochromasia 1+, Anisocytosis 1+ Height (Feet): 5 Height (Inches): 2.00 Weight (Pounds): 158 General Appearance: no apparent distress EENT: PERRL/EOMI Neck: non-tender Cardiovascular: normal peripheral pulses Respiratory/Chest: chest wall non-tender Abdomen: normal bowel sounds Extremities: normal range of motion Edema: no edema noted Leg (L), no edema noted Leg (R), no edema noted Pedal (L) , no edema noted Pedal (R), no edema noted Generalized Neurologic: oriented x 3 Skin: warm/dry Reji Mae Oct 05, 2016 14:57
[2016-10-05 16:00] VITALS: BP 139/63
--- NOTE | 2016-10-05 17:00 | Diagnostic Imaging Report ---
Indication: DYSPNEA Technique: One view of the chest Comparison: 10/02/2016 Findings: Lungs and pleural spaces are clear. Heart size is normal. No significant change Impression: No acute process
--- NOTE | 2016-10-05 18:13 | Pulmonology Progress Note ---
Assessment/Plan Problems: (1) Pancytopenia (2) Lactic acid acidosis (3) Metabolic acidosis with respiratory alkalosis (4) HTN (hypertension) Assessment/Plan repeat cxr flow cytometry showed that pt has Acute LL case manger informed the health plan. they want to arrange for outpatient Oncology evaluation. Subjective ROS Limited/Unobtainable: No Interval Events: still some cough Allergies: Coded Allergies: No Known Allergies (Unverified , 08/19/13) Objective Last 24 Hour Vital Signs Date Time Temp Pulse Resp B/P Pulse Ox O2 Delivery O2 Flow Rate FiO2 10/05/16 16:00 98.2 111 19 139/63 97 Room Air 10/05/16 12:00 98.2 113 18 92/61 96 Nasal Cannula 2.0 10/05/16 11:31 98 20 99 Room Air 10/05/16 11:21 21 10/05/16 11:21 21 10/05/16 11:21 95 20 95 Room Air 21 10/05/16 11:21 95 20 95 Room Air 21 10/05/16 08:21 104 143/65 10/05/16 08:00 97.0 104 22 143/65 93 Room Air 10/05/16 07:22 118 22 Room Air 10/05/16 04:26 98.1 75 18 125/80 96 Room Air 10/05/16 00:12 97.9 71 18 131/88 96 Room Air 10/04/16 23:51 21 10/04/16 23:51 59 18 99 Room Air 10/04/16 23:50 62 18 94 Room Air 21 10/04/16 19:45 99.5 60 23 124/61 95 Room Air 10/04/16 19:40 59 16 Room Air Intake and Output 10/04/16 10/05/16 19:00 07:00 Intake Total 810 ml 1500 ml Balance 810 ml 1500 ml Intake Oral 360 ml IV Total 450 ml 1500 ml # Voids 2 2 General Appearance: WD/WN HEENT: normocephalic Respiratory/Chest: chest wall non-tender Cardiovascular: normal peripheral pulses, normal rate Abdomen: normal bowel sounds Genitourinary: normal external genitalia Laboratory Tests 10/05/16 05:15: White Blood Count 5.3, Red Blood Count 3.21L, Hemoglobin 8.7L, Hematocrit 26.7L , Mean Corpuscular Volume 83, Mean Corpuscular Hemoglobin 27.0, Mean Corpuscular Hemoglobin Concent 32.4, Red Cell Distribution Width 18.1H, Platelet Count 76L, Mean Platelet Volume 7.3, Neutrophils (%) (Auto) , Lymphocytes (%) (Auto) , Monocytes (%) (Auto) , Eosinophils (%) (Auto) , Basophils (%) (Auto) , Differential Total Cells Counted 100, Neutrophils % ( Manual) 10L, Lymphocytes % (Manual) 77H, Monocytes % (Manual) 1, Eosinophils % ( Manual) 1, Basophils % (Manual) 0, Blast Cells % 11*H, Band Neutrophils 0, Platelet Estimate DecreasedL, Platelet Morphology Normal, Polychromasia 1+, Hypochromasia 1+, Anisocytosis 1+ Current Medications Medications (Trade) Dose Ordered Sig/Ebony Route PRN Reason Start Time Stop Time Status Last Admin Dose Admin Acetaminophen (Tylenol) 650 mg Q4H PRN ORAL Mild Pain/Temp > 100.5 10/04/16 20:00 11/03/16 19:59 Albuterol/ Ipratropium (DuoNeb 0.5-3(2.5)mg/3ml) 3 ml Q4H PRN HHN Shortness of Breath 10/04/16 19:30 10/09/16 19:29 10/05/16 11:21 Allopurinol (Allopurinol) 300 mg Q12HR ORAL 10/04/16 23:00 11/03/16 22:59 10/05/16 08:21 Amlodipine Besylate (Norvasc) 10 mg DAILY ORAL 10/05/16 09:00 11/04/16 08:59 10/05/16 08:21 Sodium Bicarbonate/ Dextrose/Sodium Chloride (Sodium Bicarbonate/D5 0.45% NS) 1,050 ml @ 150 mls/hr Q7H IV 10/04/16 20:00 11/03/16 19:59 10/05/16 10:23 Temazepam (Restoril) 15 mg HSPRN PRN ORAL Insomnia 10/04/16 21:00 10/11/16 20:59 LEMUEL CROW Oct 05, 2016 18:13
[2016-10-05 20:00] VITALS: BP 144/74
--- NOTE | 2016-10-06 00:27 | Cardiology Report ---
APPROVED REPORT EKG Measurement Heart [id number] Sinus tachycardia with premature atrial complexes Otherwise normal ECG
[2016-10-06 04:00] VITALS: BP 132/55
[2016-10-06] MEDS: Sodium Bicarbonate 50 ML in D5 1/2NS 1,000 ML IV SCH (04:00)
[2016-10-06 06:00] VITALS: BP 110/67
[2016-10-06] MEDS: DuoNeb 0.5-3(2.5)mg/3ml neb HHN PRN (07:47)
[2016-10-06 08:00] VITALS: BP 147/62
--- NOTE | 2016-10-06 09:19 | Cardiology Report ---
APPROVED REPORT EXAM: Two-dimensional and M-mode echocardiogram with Doppler and color Doppler. INDICATION Tachycardia M-Mode DIMENSIONS IVSd0.7 (0.7-1.1cm)Left Atrium (MM)3.2 (1.6-4.0cm) LVDd4.9 (3.5-5.6cm)Aortic Root2.5 (2.0-3.7cm) PWd0.9 (0.7-1.1cm)Aortic Cusp Exc.1.6 (1.5-2.0cm) LVDs2.1 (2.5-4.0cm) PWs0.8 cm Normal left ventricular chamber size, systolic function and wall motion. Left ventricular ejection fraction estimated to be 60-65 %. No evidence of left ventricular hypertrophy. No evidence of pericardial fat or effusion. All other cardiac chamber sizes are within normal limits. Focal aortic valve sclerosis with adequate cusp excursion Thickened mitral valve leaflets with normal excursion. Mitral annulus and aortic root calcification. Pulmonic valve not well visualized. Normal tricuspid valve structure. IVC is normal in size with physiologic collapse. A color flow and spectral Doppler study was performed and revealed: No aortic regurgitation. Trace mitral regurgitation. Left ventricular diastolic dysfunction not obtainable due to arrythmia. No tricuspid regurgitation.
[2016-10-06 12:03] VITALS: BP 141/62
[2016-10-06 14:05] LABS: ABG ALLEN TEST POSITIVE; ABG BASE EXCESS -8.2; ABG PCO2 26.2 mmHg (35.0-45.0)
--- NOTE | 2016-10-06 17:34 | General Progress Note ---
Assessment/Plan Assessment/Plan ASSESSMENT: 1. ALL. Uric acid >15, will continue allopurinol, have discussed with pulm, pt transferred to agency, accepted by heme/onc Dr. Flako Zapata 2. Leukopenia. Likely related to ALL. 3. Thrombocytopenia, related to blasts infiltrating bone marrow 4. Tumor lysis syndrome. Uric acid >15. Have ordered rasburicase. 5. Lactic acidosis. 6. Hyperuricemia. 7. Monocytosis. RECOMMENDATIONS: 1. Agree with others to transfer to higher level of care 2. Continue allopurinol 3. DIC panel appears negative 4. HIV and hepatitis panel negative. 5. Discuss with pathologist. 6. DVT prophylaxis with heparin sq 7. Monitor uric acid. 8. Monitor lactic acidosis. 9. Discussed with staff Subjective Constitutional: Reports: no symptoms HEENT: Reports: no symptoms Cardiovascular: Reports: no symptoms Respiratory: Reports: no symptoms Gastrointestinal/Abdominal: Reports: no symptoms Genitourinary: Reports: no symptoms Neurologic/Psychiatric: Reports: no symptoms Endocrine: Reports: no symptoms Hematologic/Lymphatic: Reports: anemia Allergies: Coded Allergies: No Known Allergies (Unverified , 08/19/13) Subjective NAD, pt D/C home with daughter, to become pt at [facility] 10/07 Objective Last 24 Hour Vital Signs Date Time Temp Pulse Resp B/P Pulse Ox O2 Delivery O2 Flow Rate FiO2 10/06/16 12:03 97.5 79 20 141/62 95 Room Air 10/06/16 08:44 70 142/62 10/06/16 08:00 98.2 70 20 147/62 96 Nasal Cannula 2.0 10/06/16 07:48 78 20 98 Nasal Cannula 2.0 28 10/06/16 07:40 71 18 Nasal Cannula 2.0 28 10/06/16 07:40 71 18 96 Nasal Cannula 2.0 28 10/06/16 04:00 97.7 68 20 132/55 95 Room Air 10/06/16 00:00 97.7 10/05/16 20:57 113 20 98 Nasal Cannula 2.0 10/05/16 20:56 60 18 94 Nasal Cannula 2.0 10/05/16 20:00 98.8 111 19 144/74 97 Room Air 10/05/16 19:14 87 18 Room Air Intake and Output 10/05/16 10/06/16 19:00 07:00 Intake Total 2175 ml 1940 ml Output Total 400 ml Balance 1775 ml 1940 ml Intake Oral 600 ml 140 ml IV Total 1575 ml 1800 ml Output Urine Total 400 ml # Voids 1 3 Laboratory Tests 10/06/16 13:50: Arterial Blood pH 7.389, Arterial Blood Partial Pressure CO2 26.2L, Arterial Blood Partial Pressure O2 72.5L, Arterial Blood HCO3 15.5L, Arterial Blood Oxygen Saturation 92.7, Arterial Blood Base Excess -8.2, Sae Test Positive Height (Feet): 5 Height (Inches): 2.00 Weight (Pounds): 158 General Appearance: no apparent distress EENT: normal ENT inspection Neck: non-tender Cardiovascular: normal peripheral pulses Respiratory/Chest: chest wall non-tender Abdomen: normal bowel sounds Extremities: normal range of motion Edema: no edema noted Leg (L), no edema noted Leg (R), no edema noted Pedal (L) , no edema noted Pedal (R), no edema noted 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
--- NOTE | 2016-10-07 13:46 | Discharge Summary ---
Discharge Summary Hospital Course Date of Admission Oct 02, 2016 at 15:44 Date of Discharge Oct 06, 2016 at 15:14 Admitting Diagnosis Metabolic Acidosis HPI Marianne Turner is a 66 year old female who was admitted on Oct 02, 2016 at 15: 44 for Metabolic Acidosis Hospital Course [id number] Discharge Discharge Disposition Patient was discharged to Home (01) Discharge Diagnoses: Margarita Nice NP Oct 07, 2016 13:45
--- NOTE | 2016-10-07 22:18 | Discharge Summary 2 SIG ---
DATE OF ADMISSION: 10/02/2016 DATE OF DISCHARGE: 10/06/2016 CONSULTANTS: 1. Reji Mae M.D. 2. Keely Mendez M.D. BRIEF HOSPITAL COURSE: The patient is a 66-year-old female with history of hypertension, presented with increased difficulty breathing over the past two weeks and has recently returned from [facility], where she had the medical testing done and stated that she had a negative CT of the chest. She reported night sweats as well as weight loss and with difficulties walking and generalized joint pain. Workup in the ED revealed severe lactic acidosis with elevated anion gap. Chest x-ray showed no acute cardiopulmonary disease and ABG with metabolic acidosis and respiratory compensation. There was also noted increased number of blood cells on WBC differential. Dr. Mae was consulted for evaluation of blasts on peripheral smear. She did not have any history of leukemia, however was noted to have thrombocytopenia and leukopenia on admission with 25% blasts on peripheral smear. The patient was diagnosed with acute lymphocytic leukemia. Uric acid was elevated to 15 with tumor lysis syndrome, was ordered rasburicase. DIC panel appeared negative. HIV and hepatitis panel are negative. She was also seen by Dr. Mendez for evaluation of electrolyte abnormalities and was given IV hydration. Echocardiogram done showed left ventricular ejection fraction 60% to 65%. Chest x-ray showed no acute process. The patient was advised need to follow up with Hematology/Oncology and was eventually discharged home. FINAL DIAGNOSES: 1. Pancytopenia. 2. Metabolic acidosis with respiratory alkalosis. 3. Hypertension. 4. Tumor lysis syndrome. 5. Lactic acidosis. 6. Hyperuricemia. 7. Monocytosis. 8. ALL. Malu Day M.D. I have been assigned to dictate discharge summary on this account and I was not involved in the patient's management. Margarita Nice N.P. DR: WILBERTO/lina JOB#: [id number] CC: [id number]
--- NOTE | 2016-10-07 23:13 | Diagnostic Imaging Report ---
APPROVED REPORT CPT Code: 71659 Present Symptoms Lower Extremity Pain: Bilateral BILATERAL: Imaging reveals a patent deep venous system bilaterally. There is no evidence of thrombus within the femoral, popliteal or tibial segments. The greater saphenous veins are also within normal limits. Doppler indicates normal spontaneous flow within these segments.
== END 2016-10-06 15:14 | disposition home or self-care (01) | DRG 834 ==
LOC: EMR 14:40 → 2W 15:44 → EDBEDREQ 16:05 → 3E 10-04 20:27
PROC: 30233N1 Transfusion of Nonautologous Red Blood Cells into Peripheral Vein, Percutaneous Approach (ICD-10-PCS; principal; 2016-10-04)
DX: C91.00 Acute lymphoblastic leukemia not having achieved remission (principal); E88.3 Tumor lysis syndrome; D61.818 Other pancytopenia; E87.2 Acidosis; D69.6 Thrombocytopenia, unspecified; R63.4 Abnormal weight loss; Z68.28 Body mass index [BMI] 28.0-28.9, adult; I10 Essential (primary) hypertension; R53.1 Weakness
CPT/HCPCS: 36415; 36600; 71010; 80048; 80053; 80329; 81270; 82550; 82553; 82607; 82728; 82746; 82803; 83010; 83540; 83550; 83605; 83880; 84484; 84550; 85007; 85025; 85044; 85060; 85651; 86703; 86705; 86709; 86803; 86850; 86900; 86901; 86920; 87040; 87340; 93005; 93306; 93970; 94640; 94664; J7620